=== PATIENT | female | born 1965 | race Caucasian/White ===

== ENCOUNTER 2023-03-07 15:29 | Outpatient (CLI) | payer BC | END 2023-03-07 15:30 | disposition home or self-care (01) | LOC: CSHMAMMO 15:29 | PROVIDERS: ATTEND Student in an Organized Health Care Education/Training Program | DX: Z12.31 Encounter for screening mammogram for malignant neoplasm of breast (principal); Z80.3 Family history of malignant neoplasm of breast | CPT/HCPCS: 77063; 77067 ==

== ENCOUNTER 2024-04-09 15:41 | Outpatient (CLI) | payer BC | END 2024-04-09 15:42 | disposition home or self-care (01) | LOC: CSHMAMMO 15:41 | PROVIDERS: ATTEND Student in an Organized Health Care Education/Training Program | DX: Z12.31 Encounter for screening mammogram for malignant neoplasm of breast (principal); Z80.3 Family history of malignant neoplasm of breast | CPT/HCPCS: 77063; 77067 ==

== ENCOUNTER 2024-08-20 13:50 | Emergency (ER) | payer BC | END 2024-08-20 15:30 | disposition home or self-care (01) | LOC: CSHERS 13:50 | DX: M25.562 Pain in left knee (principal) | CPT/HCPCS: 99283 ==